=== PATIENT | female | born 1995 | race Caucasian/White ===

== ENCOUNTER 2018-10-15 18:33 | Emergency (ER) | payer OTHER ==
[~2018-10-15] VITALS: Ht 162.6 cm; Wt 76.2 kg
[2018-10-15 18:44] VITALS: BP 118/74
--- NOTE | 2018-10-15 18:46 | NUR ---
urine cup handed to pt for sample
--- NOTE | 2018-10-15 18:55 | NUR ---
PATIENT AMBULATED TO BED #8
[2018-10-15] MEDS ORDERED: ALUMINUM HYD/MAG/SIMETHICONE 30 ML UDC PO ONE (19:55)
[2018-10-15] MEDS ORDERED: DICYCLOMINE HCL LIQUID 10 MG/5 ML UDC PO ONE (19:55)
[2018-10-15] MEDS ORDERED: LIDOCAINE VISCOUS 2% 20 ML UDC PO ONE (19:55)
[2018-10-15 20:48] VITALS: BP 120/75
--- NOTE | 2018-10-15 20:48 | NUR ---
Patient discharged with v/s stable. Written and verbal after care instructions given and explained. Patient alert, oriented and verbalized understanding of instructions. Ambulatory with steady gait. All questions addressed prior to discharge. ID band removed. Patient advised to follow up with PMD. Rx of PROTONIX given. Patient educated on indication of medication including possible reaction and side effects. Opportunity to ask questions provided and answered.
== END 2018-10-15 20:48 | disposition home or self-care (01) ==
LOC: MED 18:33
DX: K29.00 Acute gastritis without bleeding (principal)
CPT/HCPCS: 81002; 81025; 99283